=== PATIENT | male | born 1945 | race African-American/Black ===

== ENCOUNTER 2019-06-09 08:56 | Emergency (ER) | payer MEDICARE, OTHER ==
[~2019-06-09] VITALS: Ht 185.4 cm; Wt 65.8 kg
--- NOTE | 2019-06-09 09:17 | Emergency Room Report ---
History of Present Illness General Chief Complaint: Chest Pain Source: Patient Present Illness HPI Disclaimer: Please note that this report is being documented using [employer] technology. This can lead to erroneous entry secondary to incorrect interpretation by the dictating instrument. HPI: 73-year-old male history of diabetes, COPD presents with chest pain and cough. Patient admitted to an outside hospital approximately 10 days ago for what he reports as hyperglycemia and possible pneumonia. He was discharged to a rehab facility and was planned for discharge from the rehab facility today however was complaining of mild left-sided chest pain about 8 out of 10 and nonradiating worse with coughing. EMS was called. On arrival he denies any fevers, shortness of breath, nausea, vomiting. He denies any cardiac history or hypertension. PMH: Diabetes, COPD PSH: Reviewed Social Hx: Former smoker nondrinker Allergies: Coded Allergies: No Known Allergies (Unverified , 06/09/19) Patient History Past Medical History: see triage record Reviewed Nursing Documentation: PMH: Agreed; PSxH: Agreed Nursing Documentation-PMH Past Medical History: No History, Except For Hx Hypertension: Yes Hx COPD: Yes Hx Diabetes: Yes Review of Systems All Other Systems: negative except mentioned in HPI Physical Exam Vital Signs Date Time Temp Pulse Resp B/P (MAP) Pulse Ox O2 Delivery O2 Flow Rate FiO2 06/09/19 08:53 102 18 138/64 (88) 94 Room Air Sp02 EP Interpretation: reviewed, normal General Appearance: well appearing, no apparent distress Head: normocephalic, atraumatic Eyes: bilateral eye PERRL, bilateral eye EOMI ENT: hearing grossly normal, moist mucus membranes Neck: full range of motion, supple Respiratory: lungs clear, normal breath sounds, no respiratory distress, no retraction, no wheezing Cardiovascular #1: normal peripheral pulses, regular rate, rhythm, no murmur Gastrointestinal: non tender, soft, non-distended, no guarding Neurologic: alert, oriented x3, no focal defects Skin: normal color, warm/dry Medical Decision Making Diagnostic Impression: Primary Impression: Pneumonia Additional Impression: History of COPD ER Course Differential diagnosis included but not limited to COPD, pneumonia, URI to name a few. Consider angina as well. EKG did have some of T wave inversions laterally. Patient's troponin was negative. Patient's chest x-ray demonstrated possible left upper lobe infiltrate. With patient's history of left-sided chest pain cough and patient not improving after outpatient antibiotics will admit to the hospital. Patient will be transferred to [facility] due to insurance. [facility] who agreed to accept the patient. Patient was stable for transfer to outside facility. Broad-spectrum antibiotics given in the ER due to concern for hospital-acquired pneumonia. EXAM: XR Chest, 1 View CLINICAL HISTORY: COUGH TECHNIQUE: Frontal view of the chest. COMPARISON: No relevant prior studies available. FINDINGS: Lungs: Hyperinflated lungs and COPD. Mild interstitial thickening. Streaky opacities medial left upper lobe, may be an infiltrate. Pleural space: Tiny left pleural effusion. No pneumothorax. Heart: Unremarkable. No cardiomegaly. Mediastinum: Unremarkable. Bones/joints: Unremarkable. IMPRESSION: 1. Hyperinflated lungs and COPD. 2. Mild interstitial thickening. Streaky opacities medial left upper lobe, may be an infiltrate. Tiny left pleural effusion. Follow-up to resolution. Laboratory Tests Test 06/09/19 09:00 White Blood Count 11.0 K/UL (4.8-10.8) H Red Blood Count 3.61 M/UL (4.70-6.10) L Hemoglobin 8.0 G/DL (14.2-18.0) L Hematocrit 27.3 % (42.0-52.0) L Mean Corpuscular Volume 76 FL (80-99) L Mean Corpuscular Hemoglobin 22.3 PG (27.0-31.0) L Mean Corpuscular Hemoglobin Concent 29.4 G/DL (32.0-36.0) L Red Cell Distribution Width 15.4 % (11.6-14.8) H Platelet Count 612 K/UL (150-450) H Mean Platelet Volume 5.1 FL (6.5-10.1) L Neutrophils (%) (Auto) 66.5 % (45.0-75.0) Lymphocytes (%) (Auto) 19.6 % (20.0-45.0) L Monocytes (%) (Auto) 8.7 % (1.0-10.0) Eosinophils (%) (Auto) 4.7 % (0.0-3.0) H Basophils (%) (Auto) 0.6 % (0.0-2.0) Sodium Level 136 MMOL/L (136-145) Potassium Level 4.6 MMOL/L (3.5-5.1) Chloride Level 98 MMOL/L (98-107) Carbon Dioxide Level 35 MMOL/L (21-32) H Anion Gap 3 mmol/L (5-15) L Blood Urea Nitrogen 20 mg/dL (7-18) H Creatinine 1.0 MG/DL (0.55-1.30) Estimate Glomerular Filtration Rate > 60 mL/min (>60) Glucose Level 111 MG/DL (74-106) H Calcium Level 9.7 MG/DL (8.5-10.1) Total Bilirubin 0.2 MG/DL (0.2-1.0) Aspartate Amino Transferase (AST) 13 U/L (15-37) L Alanine Aminotransferase (ALT) 9 U/L (12-78) L Alkaline Phosphatase 109 U/L (46-116) Troponin I 0.000 ng/mL (0.000-0.056) Total Protein 8.2 G/DL (6.4-8.2) Albumin 2.2 G/DL (3.4-5.0) L Globulin 6.0 g/dL Albumin/Globulin Ratio 0.4 (1.0-2.7) L EKG Diagnostic Results Rate: normal Rhythm: NSR Other Impression T wave inversions laterally with ST depressions Rhythm Strip Diag. Results EP Interpretation: yes Rate: 92 Rhythm: NSR, no ectopy Last Vital Signs Date Time Temp Pulse Resp B/P (MAP) Pulse Ox O2 Delivery O2 Flow Rate FiO2 06/09/19 08:53 102 18 138/64 (88) 94 Room Air Status: improved Disposition: XFER [facility] Condition: Serious Osvaldo Salgado M.D. Jun 09, 2019 09:17
[2019-06-09 09:24] VITALS: BP 129/77
[2019-06-09 09:29] LABS: BASOPHILS % (AUTO) 0.6 % (0.0-2.0); EOSINOPHILS % (AUTO) 4.7 % (0.0-3.0); HEMATOCRIT 27.3 % (42.0-52.0); LYMPHOCYTES % (AUTO) 19.6 % (20.0-45.0); MEAN CORPUSCULAR VOLUME 76 FL (80-99); MONOCYTES % (AUTO) 8.7 % (1.0-10.0); NEUTROPHILS % (AUTO) 66.5 % (45.0-75.0); PLATELET COUNT 612 K/UL (150-450); RED BLOOD COUNT 3.61 M/UL (4.70-6.10); RED CELL DISTRIBUTION WIDTH 15.4 % (11.6-14.8)
[2019-06-09 09:38] LABS: ANION GAP 3 mmol/L (5-15); BLOOD UREA NITROGEN 20 mg/dL (7-18); CALCIUM 9.7 MG/DL (8.5-10.1); CARBON DIOXIDE 35 MMOL/L (21-32); CHLORIDE 98 MMOL/L (98-107); POTASSIUM 4.6 MMOL/L (3.5-5.1); SODIUM 136 MMOL/L (136-145)
[2019-06-09 09:42] LABS: ALANINE AMINOTRANSFERASE 9 U/L (12-78); ALBUMIN 2.2 G/DL (3.4-5.0); ALBUMIN/GLOBULIN RATIO 0.4 (1.0-2.7); ALKALINE PHOSPHATASE 109 U/L (46-116); ASPARTATE AMINO TRANSFERASE 13 U/L (15-37); BILIRUBIN,TOTAL 0.2 MG/DL (0.2-1.0)
--- NOTE | 2019-06-09 10:40 | Diagnostic Imaging Report ---
EXAM: XR Chest, 1 View CLINICAL HISTORY: COUGH TECHNIQUE: Frontal view of the chest. COMPARISON: No relevant prior studies available. FINDINGS: Lungs: Hyperinflated lungs and COPD. Mild interstitial thickening. Streaky opacities medial left upper lobe, may be an infiltrate. Pleural space: Tiny left pleural effusion. No pneumothorax. Heart: Unremarkable. No cardiomegaly. Mediastinum: Unremarkable. Bones/joints: Unremarkable. IMPRESSION: 1. Hyperinflated lungs and COPD. 2. Mild interstitial thickening. Streaky opacities medial left upper lobe, may be an infiltrate. Tiny left pleural effusion. Follow-up to resolution.
[2019-06-09] MEDS ORDERED: LEVEMIR FL100 UNIT/2 SQ (11:05)
[2019-06-09] MEDS ORDERED: METFORMIN HCL500 M1 ORAL (11:05)
[2019-06-09] MEDS ORDERED: CARVEDILOL3.125 MG ORAL (11:05)
[2019-06-09] MEDS ORDERED: LACTULOSE20 GM/301 ORAL (11:05)
[2019-06-09] MEDS ORDERED: MYLANTA MAXIMU355 ML PO (11:05)
[2019-06-09] MEDS ORDERED: FLOMAX0.4 MG ORAL (11:05)
[2019-06-09] MEDS ORDERED: ACETAMINOPHEN325 M1 ORAL (11:05)
[2019-06-09] MEDS ORDERED: PANTOPRAZOLE SO40 MG ORAL (11:05)
[2019-06-09] MEDS ORDERED: PRO-STAT LIQUID30 ML ORAL (11:05)
[2019-06-09] MEDS ORDERED: ATORVASTATIN CA40 MG ORAL (11:05)
[2019-06-09] MEDS ORDERED: IPRATROPIU0.2 MG/1 M HHN (11:05)
[2019-06-09] MEDS ORDERED: GERI-TUSSIN DM473 M1 PO (11:05)
[2019-06-09] MEDS ORDERED: HUMALOG100 UNIT/4 SUBQ (11:05)
[2019-06-09] MEDS ORDERED: SENNA8.6 M2 PO (11:05)
[2019-06-09] MEDS ORDERED: FUROSEMIDE40 MG ORAL (11:05)
[2019-06-09] MEDS ORDERED: DOCUSATE SODIU100 MG ORAL (11:05)
[2019-06-09] MEDS ORDERED: Piperacillin/Tazobactam 3.375 GM in NS 110 ML IVPB ONE (11:15)
[2019-06-09] MEDS ORDERED: Vancomycin 1 GM in NS 275 ML IVPB ONE (11:15)
[2019-06-09] MEDS ORDERED: Albuterol/Ipratropium 3ml neb HHN ONE ×2 (11:15→16:00)
[2019-06-09 11:54] VITALS: BP 125/60
[2019-06-09 16:49] VITALS: BP 111/54
== END 2019-06-09 16:49 | disposition short-term general hospital (02) ==
LOC: EDBD 08:56 → EMR 09:40 → EDBEDREQ 10:52 → EDBEDREQSVC 16:49 → EMR 16:49
DX: J18.9 Pneumonia, unspecified organism (principal); J44.9 Chronic obstructive pulmonary disease, unspecified; E11.9 Type 2 diabetes mellitus without complications; I10 Essential (primary) hypertension
CPT/HCPCS: 36415; 71045; 80053; 82962; 84484; 85025; 93005; 96365; 96368; 99285; J2543; J3370; J7050; J7620